=== PATIENT | female | born 1980 | race Asian ===

== ENCOUNTER 2020-01-31 11:45 | Emergency (ER) | payer SELFPAY ==
[~2020-01-31] VITALS: Ht 160 cm; Wt 63.5 kg
[2020-01-31] MEDS ORDERED: ACETAMINOPHEN ES 500 MG TABLET PO ONE (12:00)
[2020-01-31] MEDS ORDERED: KETOROLAC TROMETHAMINE 30 MG INJ IM ONE (12:00)
[2020-01-31] MEDS ORDERED: ACETAMINOPHEN ES 500 MG TABLET ONE (12:06)
[2020-01-31] MEDS ORDERED: KETOROLAC TROMETHAMINE 30 MG INJ ONE (12:07)
--- NOTE | 2020-01-31 12:24 | NUR ---
PT WAS EVALUATED BY DR MORIN. PT WAS D/C'd TO HOME. D/C INSTRUCTIONS GIVEN TO THE PT BY DR MORIN.
[2020-01-31 12:27] VITALS: BP 136/78
== END 2020-01-31 12:28 | disposition home or self-care (01) ==
LOC: ER 11:45
DX: M54.10 Radiculopathy, site unspecified (principal)
CPT/HCPCS: 96372; 99283; J1885; A4663; A9150